=== PATIENT | male | born 2000 | race Caucasian/White ===

== ENCOUNTER → 2021-04-29 | Outpatient (CLI) | payer OTHER ==
--- NOTE | 2021-05-08 09:14 | REP ---
INDICATION: RT HAND PAIN. Repeat dictation. Fracture of the base of the 5th metacarpal. COMPARISON: Comparison radiograph April 10, 2021. TECHNIQUE: Helical scanning is acquired and axial 2 mm slices are re-formatted. Coronal and sagittal MPR images are generated. FINDINGS: CT images confirm the presence of a comminuted slightly impacted fracture of the proximal end of the 5th metacarpal with some impaction of the articular margin. There appears to be healing bridging callus along the palm are aspect of the 5th metacarpal. No other acute fracture is appreciated. No subluxation seen. IMPRESSION: Healing comminuted slightly impacted fracture at the base of the 5th metacarpal. <Electronically signed by Vipul Lemon > 05/08/21 [id number]
== END ==
LOC: M RAD 16:08
PROVIDERS: ATTEND Orthopaedic Surgery
DX: S62.346D Nondisplaced fracture of base of fifth metacarpal bone, right hand, subsequent encounter for fracture with routine healing (principal)

== ENCOUNTER → 2023-10-05 | Outpatient (CLI) | payer OTHER | LOC: M EKG 14:04 | PROVIDERS: ATTEND Anesthesiology | DX: I10 Essential (primary) hypertension (principal) ==

== ENCOUNTER 2023-10-14 10:17 | Day surgery (SDC) | payer OTHER ==
[~2023-10-14] VITALS: Ht 170.2 cm; Wt 87.9 kg
[2023-10-14] MEDS: LR 1,000 ML IV SCH ×2 (11:37→17:03)
[2023-10-14] MEDS ORDERED: SUCCINYLCHOLINE 100MG/5ML SYRINGE As Ordered ONE (14:07)
[2023-10-14] MEDS ORDERED: propofoL 200 MG/20 ML VIAL As Ordered ONE (14:07)
[2023-10-14] MEDS ORDERED: MIDAZOLAM INJ 2MG/2ML VIAL As Ordered ONE (14:07)
[2023-10-14] MEDS ORDERED: fentaNYL 100 MCG/2 ML INJECTION As Ordered ONE (14:07)
[2023-10-14] MEDS ORDERED: ONDANSETRON 4MG 2ML VIAL As Ordered ONE (14:07)
[2023-10-14] MEDS ORDERED: LIDOCAINE 2% 100MG/5ML SDV (FOR ANES.) As Ordered ONE (14:07)
[2023-10-14] MEDS ORDERED: ROCURONIUM BROMIDE 50MG/5ML VIAL As Ordered ONE (14:49)
[2023-10-14] MEDS ORDERED: ACETAMINOPHEN 1000MG 100ML IV BAG As Ordered ONE (15:13)
[2023-10-14] MEDS: OXYMETAZOLINE 0.05% NASAL SPRAY (AFRIN) As Ordered ONE (15:25)
[2023-10-14] MEDS ORDERED: HYDROmorphone HCL 2MG/ML 1ML VIAL As Ordered ONE (15:36)
[2023-10-14] MEDS ORDERED: GLYCOPYRROLATE INJ 0.2 MG/ML 2 ML VIAL As Ordered ONE (15:40)
[2023-10-14 16:22] VITALS: BP 118/71; TEMP 97.8; O2SAT 99
[2023-10-14 16:25] VITALS: BP 123/69; O2SAT 99
[2023-10-14] MEDS ORDERED: ONDANSETRON 4MG 2ML VIAL IV PRN (16:25)
[2023-10-14] MEDS ORDERED: fentaNYL 100 MCG/2 ML INJECTION IV PRN (16:25)
[2023-10-14 16:30] VITALS: BP 117/62; O2SAT 98
[2023-10-14 16:35] VITALS: BP 118/56; O2SAT 98
[2023-10-14] MEDS: oxyCODONE 5MG TAB PO PRN (17:03)
[2023-10-14 17:13] VITALS: BP 129/73; TEMP 97.9; O2SAT 96
== END 2023-10-14 17:37 | disposition home or self-care (01) ==
LOC: M SDC 10:17
PROVIDERS: ATTEND Otolaryngology
DX: J35.3 Hypertrophy of tonsils with hypertrophy of adenoids (principal); R09.81 Nasal congestion; J31.0 Chronic rhinitis; J34.2 Deviated nasal septum; J34.3 Hypertrophy of nasal turbinates; Z79.899 Other long term (current) drug therapy
CPT/HCPCS: 42821; 88302; J0131; J0330; J1100; J1170; J2250; J2405; J3010